=== PATIENT | female | born 1945 | race Caucasian/White ===

== ENCOUNTER 2017-04-24 15:31 | Emergency (ER) | payer MEDICARE, OTHER ==
[2017-04-24] MEDS ORDERED: SOD CHLORIDE 0.9% 1,000 ML IV (15:35)
[2017-04-24 15:54] LABS: ADD MAN DIFF? NO
[2017-04-24 15:56] LABS: BASOPHILS % 0.1 % (0.0-2.0); EOSINOPHILS % 0.1 % (0.0-7.0); HEMATOCRIT 36.1 % (37.0-47.0); HEMOGLOBIN 12.2 g/dl (12.0-16.0); LYMPHOCYTES # 2.3 10^3/ul (0.8-2.9); LYMPHOCYTES % 14.2 % (15.0-51.0); MEAN CORPUSCULAR HEMOGLOBIN 30.7 pg (29.0-33.0); MEAN CORPUSCULAR HGB CONC 33.8 g/dl (32.0-37.0); MEAN CORPUSCULAR VOLUME 90.9 fl (82.0-101.0); MEAN PLATELET VOLUME 11.4 fl (7.4-10.4); MONOCYTES % 6.4 % (0.0-11.0); NEUTROPHIL # 12.5 10^3/ul (1.6-7.5); NEUTROPHILS % 78.3 % (39.0-77.0); PLATELET COUNT 146 10^3/UL (140-415); RED BLOOD COUNT 3.97 10^6/ul (4.20-5.40); RED CELL DISTRIBUTION WIDTH 12.7 % (11.5-14.5)
[2017-04-24 16:06] LABS: ALANINE AMINOTRANSFERASE 46 IU/L (13-69); ALBUMIN/GLOBULIN RATIO 1.08; ALKALINE PHOSPHATASE 73 IU/L (42-121); ANION GAP 18 (8-16); ASPARTATE AMINO TRANSFERASE 37 IU/L (15-46); BLOOD UREA NITROGEN 18 mg/dl (7-20); CALCIUM 8.5 mg/dl (8.4-10.2); CARBON DIOXIDE 22 mmol/L (21-31); CHLORIDE 101 mmol/L (97-110); GLUCOSE 164 mg/dl (70-220); SODIUM 137 mmol/L (135-144); TOTAL PROTEIN 7.7 g/dl (6.1-8.1)
[2017-04-24 16:17] LABS: ACETAMINOPHEN < 10.0 ug/ml (10.0-30.0); SALICYLATE < 1.0 mg/dl (5.0-30.0)
[2017-04-24 16:18] LABS: ETHANOL < 10.0 mg/dl
== END 2017-04-24 18:24 | disposition home or self-care (01) ==
LOC: E/R 15:31
DX: E86.0 Dehydration (principal)
CPT/HCPCS: 70450; 80053; 80306; 85025; 93005; 99285-25

== ENCOUNTER 2017-05-04 17:00 | Emergency (ER) | payer SELFPAY, OTHER, MEDICARE | END 2017-05-04 19:39 | disposition left against medical advice (07) | LOC: E/R 17:00 | DX: Z53.21 Procedure and treatment not carried out due to patient leaving prior to being seen by health care provider (principal) ==

== ENCOUNTER 2017-06-09 14:36 | Emergency (ER) | payer SELFPAY, OTHER, MEDICARE | END 2017-06-09 21:25 | disposition left against medical advice (07) | LOC: E/R 21:25 | DX: Z53.21 Procedure and treatment not carried out due to patient leaving prior to being seen by health care provider (principal) ==

== ENCOUNTER 2017-06-11 14:09 | Emergency (ER) | payer MEDICARE, OTHER ==
[2017-06-11] MEDS: KETOROLAC 30 MG INJ IM (16:15)
== END 2017-06-11 18:33 | disposition home or self-care (01) ==
LOC: FTE 14:09
DX: M79.605 Pain in left leg (principal)
CPT/HCPCS: 73610; 93971; 96372; 99285-25

== ENCOUNTER 2017-07-26 13:37 | Emergency (ER) | payer MEDICARE, OTHER ==
[2017-07-26] MEDS: morphine 4 MG/ML VIAL IV (16:12)
[2017-07-26 16:20] LABS: ADD MAN DIFF? NO
[2017-07-26 16:21] LABS: BASOPHILS % 0.5 % (0.0-2.0); EOSINOPHILS # 0.1 10^3/ul (0.0-0.5); EOSINOPHILS % 0.9 % (0.0-7.0); HEMATOCRIT 36.2 % (37.0-47.0); HEMOGLOBIN 12.1 g/dl (12.0-16.0); LYMPHOCYTES # 3.1 10^3/ul (0.8-2.9); LYMPHOCYTES % 38.6 % (15.0-51.0); MEAN CORPUSCULAR HEMOGLOBIN 31.1 pg (29.0-33.0); MEAN CORPUSCULAR HGB CONC 33.4 g/dl (32.0-37.0); MEAN CORPUSCULAR VOLUME 93.1 fl (82.0-101.0); MEAN PLATELET VOLUME 9.9 fl (7.4-10.4); MONOCYTE # 0.5 10^3/ul (0.3-0.9); MONOCYTES % 6.1 % (0.0-11.0); NEUTROPHIL # 4.3 10^3/ul (1.6-7.5); NEUTROPHILS % 53.7 % (39.0-77.0); PLATELET COUNT 201 10^3/UL (140-415); RED BLOOD COUNT 3.89 10^6/ul (4.20-5.40)
[2017-07-26 16:41] LABS: ALANINE AMINOTRANSFERASE 22 IU/L (13-69); ALBUMIN/GLOBULIN RATIO 1.21; ALKALINE PHOSPHATASE 74 IU/L (42-121); ANION GAP 16 (8-16); ASPARTATE AMINO TRANSFERASE 24 IU/L (15-46); BILIRUBIN,INDIRECT 0.1 mg/dl (0-1.1); BILIRUBIN,TOTAL 0.1 mg/dl (0.2-1.3); BLOOD UREA NITROGEN 15 mg/dl (7-20); CALCIUM 9.4 mg/dl (8.4-10.2); CARBON DIOXIDE 26 mmol/L (21-31); CHLORIDE 108 mmol/L (97-110); CREATININE 0.78 mg/dl (0.44-1.00); GLUCOSE 153 mg/dl (70-220); POTASSIUM 4.1 mmol/L (3.5-5.1); SODIUM 146 mmol/L (135-144); TOTAL PROTEIN 7.3 g/dl (6.1-8.1); URIC ACID 4.1 mg/dl (3.1-7.9)
[2017-07-26 16:59] LABS: TROPONIN-I < 0.012 ng/ml (0.00-0.12)
[2017-07-26] MEDS: KETOROLAC 30 MG INJ IV (19:51)
== END 2017-07-26 20:15 | disposition home or self-care (01) ==
LOC: E/R 13:37
DX: I73.9 Peripheral vascular disease, unspecified (principal); R07.9 Chest pain, unspecified
CPT/HCPCS: 36415; 71045; 80053; 84484; 84560; 85025; 93005; 93922; 93971; 96374; 96375; 99285-25

== ENCOUNTER 2017-08-03 16:01 | Emergency (ER) | payer MEDICARE, OTHER ==
[2017-08-03] MEDS ORDERED: HYDROmorphONE 1 MG/5 ML IV SYRINGE IV (17:06)
[2017-08-03] MEDS: ONDANSETRON (ODT) 4 MG TAB ODT (17:21)
[2017-08-03] MEDS: HYDROmorphONE 2 MG/ML SYG IM (17:30)
== END 2017-08-03 19:39 | disposition home or self-care (01) ==
LOC: E/R 16:01
DX: M79.605 Pain in left leg (principal); R60.0 Localized edema
CPT/HCPCS: 93971; 96372; 99285-25

== ENCOUNTER 2017-11-07 19:50 | Emergency (ER) | payer SELFPAY, OTHER, MEDICARE | END 2017-11-07 21:52 | disposition left against medical advice (07) | LOC: E/R 19:50 | DX: Z53.21 Procedure and treatment not carried out due to patient leaving prior to being seen by health care provider (principal) ==

== ENCOUNTER 2018-02-03 17:44 | Emergency (ER) | payer MEDICARE, OTHER ==
[2018-02-03] MEDS: morphine 4 MG/ML VIAL IV (20:49)
[2018-02-03 20:55] LABS: ADD MAN DIFF? NO
[2018-02-03 20:57] LABS: WHITE BLOOD COUNT 9.2 10^3/ul (4.8-10.8)
[2018-02-03 20:57] LABS: BASOPHIL # 0.1 10^3/ul (0.0-0.1); BASOPHILS % 0.7 % (0.0-2.0); EOSINOPHILS # 0.1 10^3/ul (0.0-0.5); EOSINOPHILS % 1.5 % (0.0-7.0); HEMATOCRIT 41.8 % (37.0-47.0); HEMOGLOBIN 13.3 g/dl (12.0-16.0); LYMPHOCYTES # 3.4 10^3/ul (0.8-2.9); LYMPHOCYTES % 36.5 % (15.0-51.0); MEAN CORPUSCULAR HEMOGLOBIN 30.2 pg (29.0-33.0); MEAN CORPUSCULAR HGB CONC 31.8 g/dl (32.0-37.0); MEAN PLATELET VOLUME 10.3 fl (7.4-10.4); MONOCYTE # 0.7 10^3/ul (0.3-0.9); MONOCYTES % 7.7 % (0.0-11.0); NEUTROPHIL # 4.9 10^3/ul (1.6-7.5); NEUTROPHILS % 53.4 % (39.0-77.0); PLATELET COUNT 229 10^3/UL (140-415); RED CELL DISTRIBUTION WIDTH 12.3 % (11.5-14.5)
[2018-02-03 21:08] LABS: ADD UMIC NO; UR ASCORBIC ACID 20 mg/dL (NEGATIVE); UR BILIRUBIN (Dip) NEGATIVE (NEGATIVE); UR BLOOD (Dip) NEGATIVE (NEGATIVE); UR CLARITY CLEAR (CLEAR); UR COLOR YELLOW (YELLOW); UR GLUCOSE (Dip) NEGATIVE (NEGATIVE); UR KETONES (Dip) NEGATIVE (NEGATIVE); UR LEUKOCYTE ESTERASE (Dip) NEGATIVE Leu/ul (NEGATIVE); UR NITRITE (Dip) NEGATIVE (NEGATIVE); UR SPECIFIC GRAVITY (Dip) 1.026 (1.003-1.030); UR TOTAL PROTEIN (Dip) NEGATIVE (NEGATIVE); UR UROBILINOGEN (Dip) NEGATIVE (NEGATIVE)
[2018-02-03 21:15] LABS: ALANINE AMINOTRANSFERASE 21 IU/L (13-69); ALBUMIN 4.5 g/dl (3.3-4.9); ALBUMIN/GLOBULIN RATIO 1.18; ALKALINE PHOSPHATASE 72 IU/L (42-121); ANION GAP 9 (5-13); ASPARTATE AMINO TRANSFERASE 36 IU/L (15-46); BILIRUBIN,INDIRECT 0.3 mg/dl (0-1.1); BILIRUBIN,TOTAL 0.3 mg/dl (0.2-1.3); BLOOD UREA NITROGEN 22 mg/dl (7-20); CALCIUM 9.4 mg/dl (8.4-10.2); CARBON DIOXIDE 26 mmol/L (21-31); CHLORIDE 105 mmol/L (97-110); CREATININE 0.94 mg/dl (0.44-1.00); GLUCOSE 92 mg/dl (70-220); POTASSIUM 4.1 mmol/L (3.5-5.1); SODIUM 140 mmol/L (135-144); TOTAL PROTEIN 8.3 g/dl (6.1-8.1)
== END 2018-02-03 23:05 | disposition home or self-care (01) ==
LOC: E/R 17:44
DX: R10.32 Left lower quadrant pain (principal)
CPT/HCPCS: 74176; 80053; 81003; 85025; 96374; 99285-25

== ENCOUNTER 2019-01-04 19:02 | Emergency (ER) | payer OTHER, MEDICARE ==
[2019-01-04] MEDS: KETOROLAC 15 MG INJ IV (21:23)
[2019-01-04] MEDS: SOD CHLORIDE 0.9% 1,000 ML IV (21:23)
== END 2019-01-04 22:39 | disposition home or self-care (01) ==
LOC: E/R 19:02
DX: D25.9 Leiomyoma of uterus, unspecified (principal)
CPT/HCPCS: 36415; 76856; 80053; 81003; 83690; 85025; 96374; 99285-25